=== PATIENT | male | born 1970 | race Caucasian/White ===

== ENCOUNTER 2017-05-07 09:48 | Emergency (ER) | payer BC ==
[~2017-05-07] VITALS: Ht 185.4 cm; Wt 114.0 kg
[2017-05-07 09:50] VITALS: BP 170/98
[2017-05-07] MEDS ORDERED: LIDOCAINE 1%, 20ML ONE ×2 (10:29→12:05)
[2017-05-07] MEDS ORDERED: LIDOCAINE 1%, 10ML INFIL ONE (10:30)
[2017-05-07] MEDS ORDERED: BACITRACIN ZINC OINT 500U/GM, 0.9 GM ONE (12:58)
== END 2017-05-07 13:08 | disposition home or self-care (01) ==
LOC: ED 12:50
DX: S01.81XA Laceration without foreign body of other part of head, initial encounter (principal); W01.0XXA Fall on same level from slipping, tripping and stumbling without subsequent striking against object, initial encounter; Y93.89 Activity, other specified; Y92.098 Other place in other non-institutional residence as the place of occurrence of the external cause; Y99.8 Other external cause status
CPT/HCPCS: 12014; 70486; 99284; J3490